=== PATIENT | female | born 1965 | race Caucasian/White ===

== ENCOUNTER 2018-09-05 13:03 | Emergency (ER) | payer BC ==
--- NOTE | 2018-09-05 14:19 | CR ---
CLINICAL HISTORY: 52-year-old female injured fall on left knee. INTERPRETATION: Reactive sclerosis patellofemoral surface of the left patella and asymmetric narrowing of the medial joint compartment with some bony eburnation suggesting underlying meniscal injury and/or arthritis. (Tiny bone spurs involving the intercondylar tibial spines). No current signs of left knee joint effusion, fracture, dislocation or radiopaque loose joint body. CONCLUSION: Osteoarthritis.
--- NOTE | 2018-09-05 14:47 | EDM.PDOC ---
ED HPI GENERAL MEDICAL PROBLEM - General Chief Complaint: Lower Extremity Injury/Pain Stated Complaint: HURT LEFT KNEE [id number] Time Seen by Provider: 09/05/18 14:35 Source of Information: Reports: Patient History Limitations: Reports: No Limitations - History of Present Illness INITIAL COMMENTS - FREE TEXT/NARRATIVE: This 52 yo female patient reports to the ED with left knee pain. The patient reports she fell and has noticed increased pain in her knee since the fall. Onset: Today Duration: Minutes:, Constant Location: Reports: Lower Extremity, Left (knee) Quality: Reports: Ache Severity: Moderate Improves with: Reports: None Worsens with: Reports: None Associated Symptoms: Reports: Other Left Knee Pain Score (Numeric/FACES): 6 - Related Data Allergies Allergy/AdvReac Type Severity Reaction Status Date / Time clarithromycin Allergy Cannot Verified 09/05/18 13:26 Remember sulfabenzamide Allergy Itching Verified 09/05/18 13:26 Home Meds: Home Meds Amoxicillin/Potassium Clav [Amox-Clav 875-125 mg Tablet] 1 tab PO BID 03/09/16 [ History] Cholecalciferol (Vitamin D3) [Vitamin D3] 5,000 unit PO ASDIRECTED 03/09/16 [ History] Codeine/Promethazine [Phenergan with Codeine] 5 ml PO Q6HR 03/09/16 [History] DULoxetine [Cymbalta] 60 mg PO DAILY 03/09/16 [History] Fexofenadine HCl [Allergy Relief] 180 mg PO ASDIRECTED 03/09/16 [History] Fluocinonide [Lidex 0.05% Crm] 15 gm TOP ASDIRECTED 03/09/16 [History] Gabapentin [Neurontin] 600 mg PO TID 03/09/16 [History] Methylphenidate HCl [Concerta] 54 mg PO 03/09/16 [History] Multivit with Calcium,Iron,Min [Essential Daily] 1 each PO ASDIRECTED 03/09/16 [ History] Pantoprazole Sodium [Protonix] 40 mg PO ASDIRECTED 03/09/16 [History] Pyridostigmine [place] [Mestinon] 60 mg PO TID 03/09/16 [History] Past Medical History HEENT History: Reports: Sinusitis, Other (See Below) Other HEENT History: scleritis Cardiovascular History: Reports: Hypertension, Other (See Below) Other Cardiovascular History: atypical chest pain Respiratory History: Reports: Sleep Apnea Other Respiratory History: does not used CPAP Gastrointestinal History: Reports: GERD, Inflammatory Bowel Disease Musculoskeletal History: Reports: Arthritis, Back Pain, Chronic, Fibromyalgia Other Musculoskeletal History: s Neurological History: Reports: Migraines, Other (See Below) Other Neuro History: myasthenia gravis Psychiatric History: Reports: Anxiety, Depression, Panic Attack Endocrine/Metabolic History: Reports: Vitamin D Deficiency, Other (See Below) Other Endocrine/Metabolic History: abnormal thyroid tests Hematologic History: Reports: Other (See Below) Other Hematologic History: morales granulomatosis Dermatologic History: Reports: Eczema - Past Surgical History HEENT Surgical History: Reports: Laser Surgery, Other (See Below) Cardiovascular Surgical History: Reports: Percutaneous Transluminal Angioplasty GI Surgical History: Reports: Cholecystectomy, Colonoscopy, Hernia, Inguinal Female Surgical History: Reports: Hysterectomy Other Female Surgeries/Procedures: 2007 Social & Family History - Family History HEENT: Reports: Glaucoma - Tobacco Use Smoking Status *Q: Never Smoker Second Hand Smoke Exposure: No - Caffeine Use Caffeine Use: Reports: Coffee - Recreational Drug Use Recreational Drug Use: No Review of Systems - Review of Systems Review Of Systems: ROS reveals no pertinent complaints other than HPI. ED EXAM, GENERAL - Physical Exam Exam: See Below Exam Limited By: No Limitations General Appearance: Alert, WD/WN, Mild Distress Eye Exam: Bilateral Eye: EOMI, Normal Inspection, PERRL Ears: Normal External Exam, Normal Canal, Hearing Grossly Normal, Normal TMs Nose: Normal Inspection, Normal Mucosa, No Blood Throat/Mouth: Normal Inspection, Normal Lips, Normal Teeth, Normal Gums, Normal Oropharynx, Normal Voice, No Airway Compromise Head: Atraumatic, Normocephalic Neck: Normal Inspection, Supple, Non-Tender, Full Range of Motion Respiratory/Chest: No Respiratory Distress, Lungs Clear, Normal Breath Sounds, No Accessory Muscle Use, Chest Non-Tender Cardiovascular: Normal Peripheral Pulses, Regular Rate, Rhythm, No Edema, No Gallop, No JVD, No Murmur, No Rub GI/Abdominal: Normal Bowel Sounds, Soft, Non-Tender, No Organomegaly, No Distention, No Abnormal Bruit, No Mass (Female) Exam: Deferred Rectal (Female) Exam: Deferred Back Exam: Normal Inspection, Full Range of Motion, NT Extremities: Leg Pain (left knee pain) Neurological: Alert, Oriented, CN II-XII Intact, Normal Cognition, Normal Gait, Normal Reflexes, No Motor/Sensory Deficits Psychiatric: Normal Affect, Normal Mood Skin Exam: Warm, Dry, Intact, Normal Color, No Rash Lymphatic: No Adenopathy Course - Vital Signs Last Recorded V/S: Last Vital Signs Temp 36.6 C 09/05/18 13:17 Pulse 90 09/05/18 13:17 Resp 16 09/05/18 13:17 BP 160/88 H 09/05/18 14:06 Pulse Ox 98 09/05/18 13:17 Departure - Departure Time of Disposition: 14:40 Disposition: Home, Self-Care 01 Condition: Fair Clinical Impression: Strain of left knee Qualifiers: Encounter type: initial encounter Qualified Code(s): S86.912A - Strain of unspecified muscle(s) and tendon(s) at lower leg level, left leg, initial encounter - Discharge Information *PRESCRIPTION DRUG MONITORING PROGRAM REVIEWED*: Not Applicable *COPY OF PRESCRIPTION DRUG MONITORING REPORT IN PATIENT [place]: Not Applicable Instructions: Knee Sprain, Adult, [id number] Forms: ED Department Discharge Care Plan Goals: The patient was advised of the examination and x-ray results during the visit. The patient was given an LYNNETTE wrap for her left knee. The patient was encouraged to rest, ice and elevate the knee over the next 48 hours. If the patient has any additional symptoms or concerns, the patient should either visit her primary care facility or return to the emergency department.
== END 2018-09-05 15:04 | disposition home or self-care (01) ==
LOC: DL.ED 13:03
DX: S86.912A Strain of unspecified muscle(s) and tendon(s) at lower leg level, left leg, initial encounter (principal); I10 Essential (primary) hypertension; K21.9 Gastro-esophageal reflux disease without esophagitis; Z88.1 Allergy status to other antibiotic agents; Z88.2 Allergy status to sulfonamides; Z79.899 Other long term (current) drug therapy; W18.30XA Fall on same level, unspecified, initial encounter
CPT/HCPCS: 73562-LT; 99283-25